=== PATIENT | male | born 1950 | race Hispanic/Latino ===

== ENCOUNTER 2017-06-14 07:50 | Day surgery (SDC) | payer BC ==
[2017-06-11 11:50] VITALS: BMI 25.8
[2017-06-14] MEDS ORDERED: Lidocaine 4% (Laryng-O-Jet) Kit MM ONE (08:58)
[2017-06-14 09:27] LABS: HEMATOCRIT 41.2 % (35.0-51.0); MEAN CELL VOLUME 87.4 fL (80.0-94.0); MEAN CORPUSCULAR HEMOGLOBIN 29.4 pg (27.0-31.0); MEAN CORPUSCULAR HGB CONC 33.7 g/dL (33.0-37.0); MEAN PLATELET VOLUME 8.9 fL (7.2-11.7); RED CELL DISTRIBUTION WIDTH 14.4 % (11.5-14.5); WHITE BLOOD COUNT 7.6 K/uL (4.8-10.8)
[2017-06-14 09:32] LABS: CHLORIDE 101 mmol/L (98-107); SODIUM 136 mmol/L (132-148)
[2017-06-14] MEDS ORDERED: Propofol 10 mg/ml Inj (20 ML) ONE ×2 (09:34→10:05)
[2017-06-14 09:35] LABS: BLOOD UREA NITROGEN 24 mg/dL (9-20); CALCIUM 8.7 mg/dl (8.6-10.4); CARBON DIOXIDE 25 mmol/L (22-30); GFR AFRICAN-AMERICAN > 60; GLUCOSE,RANDOM 82 mg/dL (75-110)
[2017-06-14 10:16] LABS: INR 1.1
--- NOTE | 2017-06-15 09:00 | CARD ---
APPROVED REPORT EXAM: Transesophageal echocardiogram with color flow Doppler w/ saline bubbles. INDICATION CVA/TIA PFO Reason For Test : Rule out cardiac source of emboli. PROCEDURE After obtaining informed consent, patient underwent transesophageal echo in the [employer]. Type of Sedation : Conscious Sedation Sedation was provided by anesthesiologist. Sedation was administered by Dr. Mari. Sedation was achieved with intravenously. The INES was performed complications. Throughout the procedure, the blood pressure, pulse oximetry, cardiac rhythm, and rate were monitored. The patient tolerated the procedure without adverse effects. Recovery from conscious sedation was uneventful and vital signs were stable. LEFT VENTRICLE The left ventricle is normal size. There is mild to moderate concentric left ventricular hypertrophy. The left ventricular function is normal. The left ventricular ejection fraction is within the normal range. No left ventricle thrombus noted on this study. There is no ventricular septal defect visualized. There is no left ventricular aneurysm. RIGHT VENTRICLE The right ventricle is normal size. The right ventricular systolic function is normal. ATRIA The left atrium size is normal. Left Atrial appendage free of thrombus The right atrium size is normal. Small PFO noted. No bubble cross over inspite of multpile injctions and Valsalva AORTIC VALVE Aortic valve Trileaflet No aortic regurgitation is present. There is no aortic valvular stenosis. There is no aortic valvular vegetation. MITRAL VALVE Mitral annular calcification is mild to moderate. The mitral valve leaflets are mildly thickened There is no mitral valve stenosis. Mitral regurgitation is mild to moderate. TRICUSPID VALVE The tricuspid valve is normal in structure. There is mild tricuspid regurgitation. There is no tricuspid valve prolapse or vegetation. There is no tricuspid valve stenosis. PULMONIC VALVE The pulmonary valve is normal in structure. GREAT VESSELS The aortic root is normal in size. <Conclusion> The left ventricular function is normal. The left ventricular ejection fraction is within the normal range. The right ventricular systolic function is normal. Mitral annular calcification is mild to moderate. The mitral valve leaflets are mildly thickened Mitral regurgitation is mild to moderate. The left atrium size is normal. Left Atrial appendage free of thrombus Small PFO noted. No bubble cross over inspite of multpile injctions and Valsalva
== END 2017-06-14 12:35 | disposition home or self-care (01) ==
LOC: C.CATHLAB 07:50
PROVIDERS: ATTEND Internal Medicine Cardiovascular Disease
DX: I67.2 Cerebral atherosclerosis (principal)
CPT/HCPCS: 36415; 80048; 85027; 85610; 85730; 93312; 93314; J2704; J3010

== ENCOUNTER 2017-09-20 07:39 | Day surgery (SDC) | payer BC ==
[2017-09-20] MEDS ORDERED: Propofol 10 mg/ml Inj (20 ML) ONE (07:50)
[2017-09-20] MEDS ORDERED: Etomidate 20 mg/10ml Inj IV ONE (07:50)
[2017-09-20] MEDS ORDERED: Midazolam 2 MG/2 ML VIAL ONE (07:51)
[2017-09-20] MEDS ORDERED: Lidocaine 4% (Laryng-O-Jet) Kit MM ONE ×4 (07:54→09:13)
[2017-09-20] MEDS ORDERED: ceFAZolin 1 gm FROZEN Premix 1 GM/50 ML ML IVPB ONE (09:28)
[2017-09-20 10:53] VITALS: BMI 25.0
[2017-09-20] MEDS ORDERED: Sodium Chloride 0.9% 500 ML IV ONE (11:30)
[2017-09-20] MEDS ORDERED: ceFAZolin IV 1 gm in Dextrose 1 GM/50 ML BAG IVPB ONE (12:00)
--- NOTE | 2017-09-21 17:15 | CARD ---
APPROVED REPORT EXAM: Two-dimensional and M-mode echocardiogram with Doppler and color Doppler. INDICATION CVA/TIA Palpitations Mitral Valve E/A ratio0.0 TDI E/Lateral E'0.0E/Medial E'0.0 Reason For Test : Rule out cardiac source of emboli. PROCEDURE After obtaining informed consent, patient underwent transesophageal echo in the [employer] Type of Sedation : Conscious Sedation Sedation was provided by anesthesiologist. Sedation was achieved with intravenously. The INES was performed complications. Throughout the procedure, the blood pressure, pulse oximetry, cardiac rhythm, and rate were monitored. The patient tolerated the procedure without adverse effects. Recovery from conscious sedation was uneventful and vital signs were stable. LEFT VENTRICLE The left ventricle is normal size. The left ventricular function is normal. The left ventricular ejection fraction is within the normal range. There is normal LV segmental wall motion. No left ventricle thrombus noted on this study. There is no ventricular septal defect visualized. RIGHT VENTRICLE The right ventricle is normal size. The right ventricular systolic function is normal. ATRIA The left atrium size is normal. The right atrium size is normal. Small PFO. There is no bubble cross over from right to left atrium AORTIC VALVE The aortic valve is normal in structure. No aortic regurgitation is present. There is no aortic valvular stenosis. There is no aortic valvular vegetation. MITRAL VALVE Mitral annular calcification There is no evidence of mitral valve prolapse. There is no mitral valve stenosis. Moderate MR TRICUSPID VALVE The tricuspid valve is normal in structure. There is mild tricuspid regurgitation. There is no tricuspid valve prolapse or vegetation. There is no tricuspid valve stenosis. PULMONIC VALVE The pulmonary valve is normal in structure. There is no pulmonic valvular regurgitation. There is no pulmonic valvular stenosis. GREAT VESSELS The aortic root is normal in size. <Conclusion> INES findings similar to previous study as described This time bubbles were injected for Right Common Femoral Vein Small PFO and no bibble cross over from Right to Left No cardiac source of emboli found
== END 2017-09-20 11:45 | disposition home or self-care (01) ==
LOC: C.SPRAD 07:39 → C.CATHLAB 07:39
PROVIDERS: ATTEND Internal Medicine Cardiovascular Disease
DX: R00.2 Palpitations (principal); I67.2 Cerebral atherosclerosis
CPT/HCPCS: 93312; J0690; J1644; J2001; J2250; J2704; J7040